=== PATIENT | male | born 1930 | race Caucasian/White ===

== ENCOUNTER → 2016-09-24 | Day surgery (SDC) | payer MEDICARE, BC ==
[~2016-09-24] MED LIST: Buffered Lidocaine 1% SYR 3ML* 3 ML/SYR SYRINGE INTRADERM ONE; Buffered Lidocaine 1% SYR 3ML* 3 ML/SYR SYRINGE ONE; Bupivacaine 0.25% EPI 200,000* 30 ML SDV ONE; Clindamycin 900 MG IVPREMIX(* 900 MG/50 ML SDV IV ONE; HYDROcodone/ACETAMIN 5-325 MG* 1 TAB ONE; Lidocain 1% EPI 1:100,000 * 30 ML MDV ONE; Lidocaine 2% MPF* 2 ML VIAL ONE; Lidocaine 2.5%/Prilocain 2.5%* 5 GM TUBE ONE; Methylene Blue 1%* 10 ML VIAL ONE; Midazolam* 1 MG/ML 5 ML VIAL (5 MG) ONE; Propofol* 10 MG/ML 20 ML BTL IV PUSH ONE; fentaNYL* 50 MCG/ML 2 ML VIAL (100 MCG VIAL) ONE
--- NOTE | 2016-09-24 09:59 | RAD ---
HISTORY: Right preauricular cheek malignancy. Lymphoscintigraphy of the breast for the purposes of sentinel node identification. COMPARISONS: None relevant TECHNIQUE: The procedure was explained to the patient who indicated that he understood. Written and verbal informed consent was obtained, with an opportunity to ask and answer questions. The right preauricular cheek was marked. A timeout was performed. The patient was prepped and draped in the usual sterile fashion. Technetium 99m sulfur colloid was administered in a subdermal fashion in 4 divided aliquots in a circumferential manner along the margin of the right preauricular cheek malignancy. Cine and planar imaging was performed. The first appearing lymph node was identified with the overlying skin marked. DOSE: Technetium 99m sulfur colloid, 0.439 millicuries, injected at 8:34 AM on September 24, 2016 FINDINGS: Uptake is noted within a right posterior auricular lymph node. The site of uptake is marked on the overlying skin. OTHER: None IMPRESSION: TECHNICALLY SUCCESSFUL, UNCOMPLICATED, LYMPHOSCINTIGRAPHY OF THE RIGHT PREAURICULAR CHEEK FOR THE PURPOSES OF SENTINEL NODE LOCALIZATION.
[2016-09-24 16:40] VITALS: BP 128/66
== END | disposition home or self-care (01) ==
LOC: SDS 06:32
PROVIDERS: ATTEND Plastic Surgery
DX: C4A.39 Merkel cell carcinoma of other parts of face (principal); C77.0 Secondary and unspecified malignant neoplasm of lymph nodes of head, face and neck; I10 Essential (primary) hypertension; I25.10 Atherosclerotic heart disease of native coronary artery without angina pectoris
CPT/HCPCS: 78195; 88305; 88307; 88341; 88342; A9270-GY; A9541; C1776; J2250; J2704; J3010